=== PATIENT | female | born 1995 | race Caucasian/White ===

== ENCOUNTER 2018-05-11 21:15 | Outpatient (CLI) | payer MEDICAID | END 2018-05-11 22:25 | disposition home or self-care (01) | LOC: LDOP 21:15 | PROVIDERS: ATTEND Obstetrics & Gynecology Female Pelvic Medicine and Reconstructive Surgery | DX: Z34.82 Encounter for supervision of other normal pregnancy, second trimester (principal); Z3A.22 22 weeks gestation of pregnancy | CPT/HCPCS: 59025; 99201; G0463 ==